=== PATIENT | female | born 1935 | race Caucasian/White ===

== ENCOUNTER 2022-04-30 21:14 | Inpatient (IN) | payer MEDICARE, OTHER ==
[~2022-04-30] VITALS: Ht 157.5 cm; Wt 39.9 kg
--- NOTE | 2022-04-30 21:28 | ED Lower Extremity ---
General Chief Complaint: Trauma-Non Activation Stated Complaint: FALL Source: patient Exam Limitations: no limitations History of Present Illness Date Seen by Provider: Apr 30, 2022 Time Seen by Provider: 21:15 Initial Comments Patient is an 87-year-old female who presents to the emergency department today with a chief complaint of right hip pain. She was walking with a friend across a hotel parking lot, bent to clam picker a bottle of water that was dropped and o verbalanced and went down on her right hip and right elbow. She did not hit her head, no loss of consciousness. She is not on blood thinners, her only medication is lisinopril. She has been recently getting over shingles on her left side. Otherwise no complaints of recent illness or other injury. She denies numbness tingling or weakness to her right lower extremity. She was able to ambulate on it but she said it was extremely painful. Unknown last tetanus shot. All other review of systems reviewed and negative except as stated. Onset: just prior to arrival Severity: moderate Pain/Injury Location: right hip Method of Injury: fell Modifying Factors: Improves With Immobilization; Worse With Movement Allergies and Home Medications Allergies Coded Allergies: No Known Drug Allergies (Unverified , 04/30/22) Patient Home Medication List Home Medication List Reviewed: Yes Review of Systems Constitutional: see HPI EENTM: no symptoms reported Respiratory: no symptoms reported Cardiovascular: no symptoms reported Gastrointestinal: no symptoms reported Genitourinary: no symptoms reported Musculoskeletal: joint pain (right hip) Skin: rash (helaing shingles) All Other Systems Reviewed Negative Unless Noted: Yes Past Tw[place]we[place]-Ielcjr-Tfusgx Hx Patient Social History Tobacco Use?: No Substance use?: No Alcohol Use?: No Physical Exam Vital Signs Vital Signs - First Documented 04/30/22 21:15 Temp 36.6 Pulse 64 Resp 16 B/P (MAP) 125/72 (89) Pulse Ox 99 O2 Delivery Room Air Capillary Refill : Height, Weight, BMI Height: '" Weight: lbs. oz. kg; BMI Method: General Appearance: WD/WN, no apparent distress HEENT: PERRL/EOMI Neck: non-tender, full range of motion, supple, normal inspection Cardiovascular: irregularly irregular, other (2+ radial pulses) Respiratory: lungs clear, normal breath sounds, no respiratory distress, no accessory muscle use Gastrointestinal: normal bowel sounds, non tender, soft Hips: left hip non-tender, left hip normal inspection, left hip normal range of motion, left hip no evidence of injury; right hip limited range of motion, right hip pain Legs: bilateral leg non-tender, bilateral leg normal inspection; left leg normal range of motion; bilateral leg no evidence of injury Knees: bilateral knee non-tender, bilateral knee normal inspection; left knee normal range of motion; bilateral knee no evidence of injury Ankles: bilateral ankle non-tender, bilateral ankle normal inspection, bilateral ankle normal range of motion, bilateral ankle no evidence of injury Feet: bilateral foot non-tender, bilateral foot normal inspection, bilateral foot normal range of motion, bilateral foot no evidence of injury Neurologic/Tendon: normal sensation, normal motor functions Neurologic/Psychiatric: alert, normal mood/affect, oriented x 3 Skin: normal color, warm/dry, other (skin tear 3.5cm right elbow - good ROM right elbow - distal NVI) Progress/Results/Core Measures Results/Orders Lab Results Laboratory Tests Test 04/30/22 21:30 Range/Units White Blood Count 7.9 4.3-11.0 10^3/uL Red Blood Count 3.52 L 3.80-5.11 10^6/uL Hemoglobin 10.5 L 11.5-16.0 g/dL Hematocrit 33 L 35-52 % Mean Corpuscular Volume 92 80-99 fL Mean Corpuscular Hemoglobin 30 25-34 pg Mean Corpuscular Hemoglobin Concent 32 32-36 g/dL Red Cell Distribution Width 13.8 10.0-14.5 % Platelet Count 384 130-400 10^3/uL Mean Platelet Volume 9.2 9.0-12.2 fL Immature Granulocyte % (Auto) 1 % Neutrophils (%) (Auto) 82 H 42-75 % Lymphocytes (%) (Auto) 10 L 12-44 % Monocytes (%) (Auto) 6 0-12 % Eosinophils (%) (Auto) 1 0-10 % Basophils (%) (Auto) 0 0-10 % Neutrophils # (Auto) 6.5 1.8-7.8 10^3/uL Lymphocytes # (Auto) 0.8 L 1.0-4.0 10^3/uL Monocytes # (Auto) 0.5 0.0-1.0 10^3/uL Eosinophils # (Auto) 0.1 0.0-0.3 10^3/uL Basophils # (Auto) 0.0 0.0-0.1 10^3/uL Immature Granulocyte # (Auto) 0.0 0.0-0.1 10^3/uL Prothrombin Time 12.6 12.2-14.7 SEC INR Comment 0.9 0.8-1.4 Activated Partial Thromboplast Time 28 24-35 SEC Sodium Level 143 135-145 MMOL/L Potassium Level 4.0 3.6-5.0 MMOL/L Chloride Level 109 H 98-107 MMOL/L Carbon Dioxide Level 19 L 21-32 MMOL/L Anion Gap 15 H 5-14 MMOL/L Blood Urea Nitrogen 32 H 7-18 MG/DL Creatinine 1.45 H 0.60-1.30 MG/DL Estimat Glomerular Filtration Rate 34 BUN/Creatinine Ratio 22 Glucose Level 119 H 70-105 MG/DL Calcium Level 9.3 8.5-10.1 MG/DL My Orders Orders - ALEXA CORNELIUS MD Ed Iv/Invasive Line Start (04/30/22 21:24) Cbc With Automated Diff (04/30/22 21:24) Basic Metabolic Panel (04/30/22 21:24) Chest 1 View, Ap/Pa Only (04/30/22 21:24) Pelvis With Right Hip 2-3views (04/30/22 21:24) Protime With Inr (04/30/22 21:24) Partial Thromboplastin Time (04/30/22 21:24) Ekg Tracing (04/30/22 21:28) Fentanyl Inj (Sublimaze Injection) (04/30/22 22:00) Ondansetron Injection (Zofran Injectio (04/30/22 22:00) Dipht,Pertuss(Acell),Tet Adult (Boostrix (04/30/22 22:00) Dipht,Pertuss(Acell),Tet Adult (Boostrix (04/30/22 21:52) Medications Given in ED Current Medications Medications Dose Ordered Sig/Mansi Route Start Time Stop Time Status Last Admin Dose Admin Diphtheria/ Tetanus/Acell Pertussis 0.5 ml ONCE ONCE IM 04/30/22 22:00 04/30/22 22:01 DC 04/30/22 21:55 0.5 ML Fentanyl Citrate 50 mcg ONCE ONCE IVP 04/30/22 22:00 04/30/22 22:01 DC 04/30/22 21:54 50 MCG Ondansetron HCl 4 mg ONCE ONCE IVP 04/30/22 22:00 04/30/22 22:01 DC 04/30/22 21:53 4 MG Vital Signs/I&O 04/30/22 21:15 Temp 36.6 Pulse 64 Resp 16 B/P (MAP) 125/72 (89) Pulse Ox 99 O2 Delivery Room Air Progress Progress Note : Time: 22:45 Progress Note Patient found to have an impacted right femoral neck fracture. Case was discussed with Dr. Crowley who recommends n.p.o. after midnight and he would plan to do surgery at around 10 AM tomorrow. I discussed with him her abnormal EKG - multiple PVCs and will do a cardiac consultation as well. Case was discussed with Dr. Kendrick. Accepted by Dr. Malloy. Pain medications are written for. Plan of care discussed with family Initial ECG Impression Date: Apr 30, 2022 Initial ECG Impression Time: 21:35 Initial ECG Rate: 98 Initial ECG Intervals VA 156 QRS 98 QTc 388 Comment underlying Sinus Rhythm with frequent PVC in bigeminal pattern, sometimes trigeminal - no sig ST elevation or depression; incomplete RBBB Diagnostic Imaging Diagonstic Imaging: Xray Comments [facility] [place] [place] NAME: STACY STEELE [facility] REC#: [id number] PT STATUS: REG ER : 1935 PHYSICIAN: ALEXA CORNELIUS MD ADMIT DATE: 04/30/22/ER Signed Date of Exam:04/30/22 PELVIS WITH RIGHT HIP 2-3VIEWS INDICATION: Right hip pain after fall. FINDINGS: There is a subcapital fracture of the right femur. This is minimally displaced. There is no other fracture or dislocation. Left hip appears intact. IMPRESSION: Subcapital fracture of the right femur. Dictated by: Dictated on workstation # [id number] Dict: 04/30/222222 Trans: 04/30/222253 [facility] [id number] Interpreted by: LILIAN LAZCANO MD Electronically signed by: LILIAN LAZCANO MD 04/30/224 Diagonstic Imaging: Xray Comments [facility] [place] [place] NAME: STACY STEELE [facility] REC#: [id number] PT STATUS: REG ER : 1935 PHYSICIAN: ALEXA CORNELIUS MD ADMIT DATE: 04/30/22/ER Signed Date of Exam:04/30/22 CHEST 1 VIEW, AP/PA ONLY INDICATION: Fall with hip pain. FINDINGS: There is cardiomegaly. There is some chronic interstitial scarring. There is no pleural effusion or pneumothorax. The mediastinum is unremarkable. IMPRESSION: 1. Cardiomegaly with some chronic interstitial scarring likely reflecting emphysematous disease and COPD. 2. No other acute cardiopulmonary abnormality. Dictated by: Dictated on workstation # [id number] Dict: 04/30/222221 Trans: 04/30/222253 [facility] [id number] Interpreted by: LILIAN LAZCANO MD Electronically signed by: LILIAN LAZCANO MD 04/30/224 Departure Communication (Admissions) Time/Spoke to Admitting Phy: 22:[address] Malloy Time/Spoke to Consulting Phy: 22:[address] Crowley Impression Primary Impression: Fracture of right hip Qualified Codes: S72.001A - Fracture of unspecified part of neck of right femur, initial encounter for closed fracture Disposition: ADMITTED INPATIENT Condition: Stable Admissions Decision to Admit Reason: Admit from ER (General) Decision to Admit/Date: Apr 30, 2022 Time/Decision to Admit Time: 23:00 Departure-Patient Inst. Referrals: NO,LOCAL PHYSICIAN (PCP/Family) Primary Care Physician ALEXA CORNELIUS MD Apr 30, 2022 21:28
[2022-04-30 21:38] LABS: BASOPHILS % (AUTO) 0 % (0-10); EOSINOPHILS # (AUTO) 0.1 10^3/uL (0.0-0.3); EOSINOPHILS % (AUTO) 1 % (0-10); HEMATOCRIT 33 % (35-52); HEMOGLOBIN 10.5 g/dL (11.5-16.0); LYMPHOCYTES # (AUTO) 0.8 10^3/uL (1.0-4.0); LYMPHOCYTES % (AUTO) 10 % (12-44); MEAN CORPUSCULAR HEMOGLOBIN 30 pg (25-34); MEAN CORPUSCULAR HGB CONC 32 g/dL (32-36); MEAN CORPUSCULAR VOLUME 92 fL (80-99); MEAN PLATELET VOLUME 9.2 fL (9.0-12.2); MONOCYTES # (AUTO) 0.5 10^3/uL (0.0-1.0); MONOCYTES % (AUTO) 6 % (0-12); NEUTROPHILS # (AUTO) 6.5 10^3/uL (1.8-7.8); NEUTROPHILS % (AUTO) 82 % (42-75); PLATELET COUNT 384 10^3/uL (130-400); WHITE BLOOD COUNT 7.9 10^3/uL (4.3-11.0)
[2022-04-30] MEDS ORDERED: TETANUS,DIPTH,PERTUSS P/F (BOOSTRIX) 0.5 ML VIAL IM ONE ×2 (21:52→22:00)
[2022-04-30 21:53] LABS: CALCIUM 9.3 MG/DL (8.5-10.1)
[2022-04-30 21:55] LABS: INR 0.9 (0.8-1.4); PROTHROMBIN TIME PATIENT 12.6 SEC (12.2-14.7)
[2022-04-30 21:57] LABS: CREATININE SERUM 1.45 MG/DL (0.60-1.30)
[2022-04-30] MEDS ORDERED: ONDANSETRON 4 MG/2 ML (SDV) Z0FRAN IVP ONE (22:00)
[2022-04-30] MEDS ORDERED: fentaNYL INJ 100 MCG/2 ML AMP IVP ONE (22:00)
--- NOTE | 2022-04-30 22:25 | Diagnostic Imaging Report ---
INDICATION: Fall with hip pain. FINDINGS: There is cardiomegaly. There is some chronic interstitial scarring. There is no pleural effusion or pneumothorax. The mediastinum is unremarkable. IMPRESSION: 1. Cardiomegaly with some chronic interstitial scarring likely reflecting emphysematous disease and COPD. 2. No other acute cardiopulmonary abnormality. Dictated by: Dictated on workstation # [id number]
--- NOTE | 2022-04-30 22:25 | Diagnostic Imaging Report ---
INDICATION: Right hip pain after fall. FINDINGS: There is a subcapital fracture of the right femur. This is minimally displaced. There is no other fracture or dislocation. Left hip appears intact. IMPRESSION: Subcapital fracture of the right femur. Dictated by: Dictated on workstation # [id number]
[2022-05-01] VITALS (13 sets, daily range): BP systolic 114–202; BP diastolic 58–86
[2022-05-01] MEDS ORDERED: ONDANSETRON 4 MG/2 ML (SDV) Z0FRAN IV PRN (00:30)
[2022-05-01] MEDS ORDERED: RT-ALBUTEROL SULF 2.5 MG/3 ML PRE-MIX VIAL INH PRN (01:00)
[2022-05-01] MEDS: fentaNYL INJ 100 MCG/2 ML AMP IV PRN ×3 (01:01→07:40)
[2022-05-01] MEDS ORDERED: MEPERIDINE (DEMEROL) INJ 50 MG/ML IVP ONE (09:00)
[2022-05-01] MEDS ORDERED: morphine INJ 10 MG/ML 1ML (SYR OR VIAL) IVP ONE (09:00)
[2022-05-01] MEDS ORDERED: ONDANSETRON 4 MG/2 ML (SDV) Z0FRAN IVP PRN ×2 (09:00→09:45)
[2022-05-01] MEDS ORDERED: fentaNYL INJ 100 MCG/2 ML AMP IVP ONE (09:00)
--- NOTE | 2022-05-01 09:03 | Progress Note-Pre Operative ---
Pre-Operative Progress Note H&P Reviewed The H&P was reviewed, patient examined and no changes noted. Date Seen by Provider: May 01, 2022 Time Seen by Provider: :03 Date H&P Reviewed: May 01, 2022 Time H&P Reviewed: 09:03 Pre-Operative Diagnosis: closed, displaced right femoral neck fracture BETH SIMS MD May 01, 2022 09:03
[2022-05-01] MEDS ORDERED: LIDOCAINE PF 2% 5 ML (XYLOCAINE) VIAL ONE (09:04)
[2022-05-01] MEDS ORDERED: MIDAZOLAM 2 MG/2 ML (VERSED) VIAL ONE (09:04)
[2022-05-01] MEDS ORDERED: proPOfol 200 MG/20 ML (DIPRIVAN) VIAL IV ONE (09:04)
[2022-05-01] MEDS ORDERED: ONDANSETRON 4 MG/2 ML (SDV) Z0FRAN ONE (09:04)
[2022-05-01] MEDS ORDERED: fentaNYL INJ 100 MCG/2 ML AMP ONE (09:04)
[2022-05-01] MEDS ORDERED: SEVOFLURANE (ULTANE) 15 ML INHAL SOLN ONE ×2 (09:04→10:15)
--- NOTE | 2022-05-01 09:04 | Progress Note-Post Operative ---
Post-Operative Progess Note Surgeon (s)/Head Teller (s) Surgeon BETH SIMS MD Head Teller: Sachin Solis Pre-Operative Diagnosis closed, displaced right femoral neck fracture Post-Operative Diagnosis closed, displaced right femoral neck fracture Procedure & Operative Findings Date of Procedure 05/01/22 Procedure Performed/Findings right hip bipolar replacement Anesthesia Type GETA Estimated Blood Loss Estimated blood loss (mL): 100ml Specimens/Packing Specimens Removed femoral head Packing: none BETH SIMS MD May 01, 2022 09:04
[2022-05-01] MEDS ORDERED: BUPIVACAINE 0.5% 30 ML (SENSORCAINE) VIAL ONE (09:24)
[2022-05-01] MEDS ORDERED: diphenhydrAMINE 50 MG/ML INJ (BENADRYL) IVP PRN (09:45)
[2022-05-01] MEDS ORDERED: ACETAMINOPHEN 325 MG TABLET PO PRN (09:45)
[2022-05-01] MEDS ORDERED: TEMAZEPAM 15 MG (RESTORIL) CAP PO PRN (09:45)
[2022-05-01] MEDS ORDERED: PHENYLEPHRINE 100 MCG/ML 10 ML (ANESTHESIA) SYR ONE (09:47)
[2022-05-01] MEDS ORDERED: ceFAZolin 2 GM IV Premixed 50 ML IV ONE (10:00)
--- NOTE | 2022-05-01 10:15 | Consultation-Cardiology ---
HPI-Cardiology Cardiology Consultation: Date of Consultation 05/01/22 Time Seen by a Provider: 09:30 Date of Admission Attending Physician Sol,Local Physician Admitting Physician Admitting Physician: Ida Malloy MD Attending Physician: Ida Malloy MD Consulting Physician AYAN ASHLEY MD, MA, FACP, FACC, [facility], [facility]S Physician requesting Cardiology consult: Dr Crowley HPI: Chief Complaint: Reason for Cardiology consult: Pre-op eval 87 yo woman who is visiting this area from [place] who tripped and fell and broke her R hip. She does not report any syncope. She denies any cp or shortness of breath or palp. She does report an irreg heart beat detected by her primary care physician for which she is due to see a propulsion engineer in [place] in May 2022. She does not report swelling or symptoms consistent with orthopnea or paroxysmal nocturnal dyspnea Review of Systems-Cardiology Review of Systems Constitutional: No malaise, No weight loss, No weight gain Eyes: No vision change Ears/Nose/Throat: No ear discharge, No nasal drainage, No recent hearing loss Respiratory: As described under HPI Cardiovascular: As described under HPI Gastrointestinal: No nausea, No vomiting Genitourinary: No dysuria, No hematuria Musculoskeletal: No back pain Skin: No rash, No ulcerations Psychiatric/Neurological: No seizure, No focal weakness, No syncope Hematologic: No bleeding abnormalities All Other Systems Reviewed Negative Unless Noted: Yes RLG-Jjjnbx-Akimrc Hx Patient Social History Smoking Status: Never a Smoker Have you traveled recently?: No Alcohol Use?: No Pt feels they are or have been: No Past Medical History PMH As described under Assessment. Family Medical History Family Medical History: She does not report fam h/o early CAD Allergies and Home Medications Allergies Coded Allergies: No Known Drug Allergies (Unverified , 04/30/22) Patient Home Medication List Home Medication List Reviewed: Yes Physical Exam-Cardiology Physical Exam Vital Signs/I&O 04/30/22 05/01/22 05/01/22 05/01/22 23:44 00:12 00:51 00:59 Temp 36.6 36.6 36.5 Pulse 84 64 75 Resp 16 18 B/P (MAP) 157/60 164/60 (94) Pulse Ox 97 97 99 97 O2 Delivery Room Air Room Air Room Air FiO2 21 7/1005/01/22 05/01/22 05/01/22 04:57 07:53 08:31 09:25 Temp 36.7 37.1 Pulse 66 92 99 Resp 18 18 B/P (MAP) 114/62 (79) 179/80 (113) Pulse Ox 96 95 95 O2 Delivery Room Air Room Air Room Air Capillary Refill : Less Than 3 Seconds Constitutional: AAO x 3, well-developed, other (thin-appearing) HEENT: PERRL, EOMI, hearing is well preserved Neck: No non-tender; carotid pulses are 2 + bilaterally Respiratory: No accessory muscle use; other (fair to good, bilateral air entry) Cardiovascular: regular rate-rhythm, S1 and S2, systolic murmur (soft LORENA at card base) Gastrointestinal: No tender; soft; No guarding, No rebound; audible bowel sounds Extremities: No clubbing, No cyanosis, No significant edema Neurologic/Psychiatric: other (moves all limbs; we did not attempt any motion at the R hip) Skin: warm/dry; No rash on exposed areas, No ulcerations on exposed areas Data Review Labs Laboratory Tests 04/30/22 21:30: White Blood Count 7.9, Red Blood Count 3.52L, Hemoglobin 10.5L, Hematocrit 33L, Mean Corpuscular Volume 92, Mean Corpuscular Hemoglobin 30, Mean Corpuscular Hemoglobin Concent 32, Red Cell Distribution Width 13.8, Platelet Count 384, M bernadette Platelet Volume 9.2, Immature Granulocyte % (Auto) 1, Neutrophils (%) (Auto) 82H, Lymphocytes (%) (Auto) 10L, Monocytes (%) (Auto) 6, Eosinophils (%) (Auto) 1, Basophils (%) (Auto) 0, Neutrophils # (Auto) 6.5, Lymphocytes # (Auto) 0.8L, Monocytes # (Auto) 0.5, Eosinophils # (Auto) 0.1, Basophils # (Auto) 0.0, Immature Granulocyte # (Auto) 0.0, Prothrombin Time 12.6, INR Comment 0.9, Activated Partial Thromboplast Time 28, Sodium Level 143, Potassium Level 4.0, Chloride Level 109H, Carbon Dioxide Level 19L, Anion Gap 15H, Blood Urea Nitrogen 32H, Creatinine 1.45H, Estimat Glomerular Filtration Rate 34, BUN/Creatinine Ratio 22, Glucose Level 119H, Calcium Level 9.3 Laboratory Tests 04/30/22 21:30 A/P-Cardiology Assessment/Admission Diagnosis Frequent ventricular and supraventricular ectopy w/o any VT or SVT Hypertension Frailty and low BMI (16) 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 I discussed with her and her family. They understand the risk. The patient wis hes to proceed with the surgery and discuss this with the surgeon * Continue to treat hypertension * Add aspirin 81 mg daily to regimen when feasible from a surgical standpoint * We also recommend perioperative DVT prophylaxis * Monitor labs AYAN ASHLEY MD FACP FAC CCDS May 01, 2022 10:15
[2022-05-01] MEDS ORDERED: ROCURONIUM 50 MG/5 ML (ZEMURON) VIAL IV ONE (10:16)
[2022-05-01] MEDS ORDERED: SUCCINYLCHOLINE INJ 100 MG/5 ML SYR/VIAL ONE (10:16)
[2022-05-01] MEDS ORDERED: LACTATED RINGERS 1,000 ML IV PRN (11:15)
[2022-05-01] MEDS ORDERED: morphine INJ 10 MG/ML 1ML (SYR OR VIAL) ONE (11:47)
[2022-05-01] MEDS: fentaNYL INJ 100 MCG/2 ML AMP IVP PRN ×2 (13:00→17:49)
[2022-05-01] MEDS: LACTATED RINGERS 1,000 ML IV PRN ×2 (13:00→22:51)
--- NOTE | 2022-05-01 13:14 | Diagnostic Imaging Report ---
HISTORY: Postoperative right hip TECHNIQUE: Single frontal view of the right hip COMPARISON: 04/30/2022 FINDINGS: There is a right hip hemiarthroplasty. There is soft tissue edema and air about the right hip from the recent surgery. No immediate hardware complication is seen. Skin osito are noted laterally. IMPRESSION: 1. Right hip hemiarthroplasty with no immediate hardware complication seen. Dictated by: Dictated on workstation # [id number]
--- NOTE | 2022-05-01 14:42 | History & Physical-Hospitalist ---
History of Present Illness HPI/Chief Complaint Gail Gee is an 87 year old female with PMH HTN who presented after a fall. She lost her balance and fell to the ground on her right side. She was having right sided hip pain. She did not lose consciousness. Upon my exam, she has just returned from surgery and she is very lethargic from medication. Source: RN/MD Exam Limitations: clinical condition Date Seen 05/01/22 Time Seen by a Provider: 13:05 Attending Physician No,Local Physician PCP Admitting Physician: Radha Wood MD Attending Physician: Radha Wood MD Referring Physician Date of Admission Apr 30, 2022 at 22:58 Home Medications & Allergies Home Medications Reviewed patient Home Medication Reconciliation performed by pharmacy medication reconciliations air and hydronic balancing technician and/or nursing. Patients Allergies have been reviewed. Allergies Allergies Coded Allergies No Known Drug Allergies (Unverified04/30/22) Past Mkcvglq-Vqtqmi-Pelbjk Hx Patient Social History Tobacco Use?: No Smoking Status: Never a Smoker Smokeless Tobacco Frequency: Never a User Use of E-Cig and/or Vaping Niraj: Never a User Substance use?: No Alcohol Use?: No Pt feels they are or have been: No Immunizations Up To Date Tetanus Booster (TDap): Unknown Current Status Advance Directives: Yes Advance Directive Location: Home Communicates: Verbally Primary Language: Malian Preferred Spoken Language: Malian Is interpretation needed?: No Implanted or Applied Medical D: None Past Medical History Currently Using CPAP: No Currently Using BIPAP: No Hypertension Family Medical History No Pertinent Family Hx Review of Systems Constitutional: see HPI Physical Exam Physical Exam Vital Signs Vital Signs - First Documented 04/30/22 05/01/22 05/01/22 21:15 00:51 11:31 Temp 36.6 Pulse 64 Resp 16 B/P (MAP) 125/72 (89) Pulse Ox 99 O2 Delivery Room Air O2 Flow Rate 6.00 FiO2 21 Capillary Refill : Less Than 3 Seconds Height, Weight, BMI Height: '" Weight: lbs. oz. kg; 16.08 BMI Method: General Appearance: No Apparent Distress, Thin Respiratory: Lungs Clear, No Respiratory Distress Cardiovascular: Regular Rate, Rhythm, No Murmur Gastrointestinal: Normal Bowel Sounds, Soft Extremity: Normal Inspection, No Pedal Edema Neurologic/Psychiatric: Other (lethargic) Skin: Normal Color, Warm/Dry Results Results/Procedures Labs Laboratory Tests 04/30/22 21:30 Patient resulted labs reviewed. Imaging: Reviewed Imaging Report Assessment/Plan Admission Diagnosis Right hip fracture Admission Status: Inpatient Order (span 2 midnights) Reason for Inpatient Admission: Hip surgery Assessment and Plan Closed right hip fracture Ground level fall Advanced age Low BMI XR with right hip fracture Orthopedic surgery, Dr. Crowley, consulted s/p surgical repair 05/01 Pain regimen Bowel regimen Incentive spirometry PT/OT Monitor hemoglobin QUINTIN vs CKD Monitor creatinine HTN Hold home meds DVT prophylaxis: Lovenox Diagnosis/Problems Diagnosis/Problems (1) Fracture of right hip Qualifiers: Encounter type: initial encounter Fracture type: closed Qualified Codes: S72.001A - Fracture of unspecified part of neck of right femur, initial encounter for closed fracture (2) Fall from ground level Status: Acute (3) Advanced age Status: Chronic (4) Low BMI Status: Chronic (5) HTN (hypertension) Status: Chronic (6) CKD (chronic kidney disease) Status: Chronic RADHA WOOD MD May 01, 2022 14:42
--- NOTE | 2022-05-01 15:05 | CONSULTATION REPORT ---
DATE OF SERVICE: 05/01/2022 REASON FOR CONSULTATION: Right femoral neck fracture. HISTORY OF PRESENT ILLNESS: The patient is an 87-year-old female, who fell last evening. She bent over to filler picker a bottle of water and lost her balance and fell onto her right hip and elbow. There was no loss of consciousness. Ultimately, radiographs revealed a displaced right femoral neck fracture. She denies antecedent pain. Currently, she reports hip pain, but denies any other pain. REVIEW OF SYSTEMS: No recent chest pain, shortness of breath or dysuria. ALLERGIES: NO KNOWN DRUG ALLERGIES. MEDICATIONS: Lisinopril. PHYSICAL EXAMINATION: The right lower extremity demonstrates mild ecchymosis on the lateral aspect of the right hip. She has intact dorsiflexion and plantarflexion of the toes. Sensation is intact throughout her right lower extremity to light touch. Pulses are symmetric. Radiographs reveal displaced right femoral neck fracture. PLAN: Right hip bipolar replacement. The risks, benefits, options, ramifications and recovery were discussed at length with the patient and her sons. They understand and wished to proceed. Job ID: [id number] DocumentID: [id number] Dictated Date: 05/01/2022 09:06:26 Workday Director Date: 05/01/2022 15:04:38 Dictated By: BETH SIMS MD
[2022-05-01] MEDS ORDERED: CEFUROXIME 750 MG/7.5 ML (ZINACEF) VIAL ONE (17:36)
[2022-05-01] MEDS: CEFUROXIME INJECTION 750 MG in NS (IVPB) 50 ML IV SCH (17:38)
--- NOTE | 2022-05-01 20:10 | OPERATIVE REPORT ---
DATE OF SERVICE: 05/01/2022 PREOPERATIVE DIAGNOSIS: Displaced right femoral neck fracture POSTOPERATIVE DIAGNOSIS: Displaced right femoral neck fracture. PROCEDURE: Right hip bipolar replacement. SURGEON: Festus Sims MD FABRICATION AND LAYOUT CRAFTSMAN: Sachin Solis, who assisted throughout the procedure and closed the incision. ANESTHESIA: General endotracheal by Sachin Albert CRNA. ESTIMATED BLOOD LOSS: 100 mL. DRAINS: None. COMPLICATIONS: None. POSTOPERATIVE PLAN: Routine hip precautions with weightbearing as tolerated. The patient was transferred to the recovery room awake and in stable condition. MATERIALS: Depuy/Synthes pressfit size 3 stem, standard neck and 43 liner with two 1.7 cables. STATEMENT OF MEDICAL NECESSITY: The patient is an 87-year-old female who was visiting for a family reunion when she fell and was found to have a displaced right subcapital femoral neck fracture. The patient and family were counseled regarding treatment options and elected to proceed with surgical intervention. DESCRIPTION OF PROCEDURE: After risks and benefits of procedure were discussed and questions were answered, an informed consent was signed and placed on chart. The operative site was confirmed in the preoperative holding area initialed by the surgeon. The patient was then transferred to the operating room and after adequate levels of general endotracheal anesthetic were obtained, a timeout was called, confirming the operative site. The patient was then carefully placed in the left lateral decubitus position. The right hip and lower extremity were prepped and draped in the usual sterile fashion. Standard anterolateral approach was utilized. The iliotibial band was incised in line with the incision. The abductor tendon was released, leaving a 2 cm cuff for later reattachment. Hip capsulotomy was performed. The fracture site was identified and using the cutting guide the cut was made. The femoral head was removed without difficulty. It was sized to a size 43. The acetabulum was copiously irrigated. No loose bodies were noted. Mild wear was noted without significant degenerative changes. It was noted that there was a cortical fragment on the superficial aspect of the calcar. This was not full thickness into the canal, but due to her bone quality, it was elected to place cables for support. Two 1.7 mm cables were then placed and partially tensioned prior to preparing the canal. The canal was then prepared with a box chisel followed by the T-handle reamer and sequential broaches up to a size 3. The 3-broach provided excellent proximal fill. This was then trialled with a 43 liner and standard head/neck. The hip was reduced after inspecting for loose bodies. The hip was taken through range of motion and was found to be stable with no impingement noted and no instability noted in any plane. The trials were then removed. The joint and canal were then copiously irrigated, and the femoral prosthesis was press fit in 15 degrees of anteversion. The cables were then retensioned to 40. The acetabulum was then copiously irrigated once more inspected for any loose bodies. The neck was then cleaned and the head liner construct was placed. The hip was then reduced and taken through range of motion. No impingement was noted. Full range of motion was noted, and no instability was noted in any plane. The calcar demonstrated no full thickness split and the cables were well seated. Because of this, the patient can weightbear as tolerated. The joint was further irrigated with pulse lavage. The capsule and abductor were reapproximated with #5 Tevdek in jvbbce-bb-zieqk interrupted fashion. The wound was further irrigated with pulse lavage. The iliotibial band was closed in a running fashion with #1 Vicryl. Subcutaneous tissues were irrigated using a total of 6 liters throughout the procedure. A 2-0 Vicryl was used to reapproximate subcutaneous tissue, osito used on the skin. Incision was infiltrated with plain Marcaine. A soft dressing was applied, and the patient was transferred to the recovery room awake and in stable condition. Job ID: [id number] DocumentID: [id number] Dictated Date: 05/01/2022 11:29:15 [employer] Consultant Date: 05/01/2022 20:09:24 Dictated By: FESTUS SIMS MD
[2022-05-01] MEDS: SENNOSIDES 8.6 MG (SENOKOT) TAB PO SCH (21:24)
[2022-05-02] VITALS (7 sets, daily range): BP systolic 143–181; BP diastolic 52–77
[2022-05-02] MEDS: fentaNYL INJ 100 MCG/2 ML AMP IVP PRN ×2 (00:22→06:00)
[2022-05-02] MEDS ORDERED: NS (IVPB) 50 ML ONE (01:38)
[2022-05-02] MEDS ORDERED: CEFUROXIME 750 MG/7.5 ML (ZINACEF) VIAL ONE (01:38)
[2022-05-02] MEDS: CEFUROXIME INJECTION 750 MG in NS (IVPB) 50 ML IV SCH (01:41)
[2022-05-02] MEDS: MULTIVIT W/MINERALS TAB (THERAGRAN M) PO SCH (06:00)
[2022-05-02 06:04] LABS: HEMOGLOBIN 9.1 g/dL (11.5-16.0)
[2022-05-02 06:18] LABS: POTASSIUM 4.2 MMOL/L (3.6-5.0)
[2022-05-02 06:19] LABS: CALCIUM 8.3 MG/DL (8.5-10.1)
[2022-05-02 06:24] LABS: CREATININE SERUM 0.95 MG/DL (0.60-1.30)
--- NOTE | 2022-05-02 07:59 | Progress Note ---
Standard Progress Note Progress Notes/Assess & Plan Date Seen by a Provider: May 02, 2022 Time Seen by a Provider: 07:57 Progress/Assessment & Plan no complaints denies paresthesias radiographs--HW well positioned without fracture RLE--intact DF and PF of toes and ankle. pulses equal with brisk cap refill sensation intact to light touch throughout s/p R hip bipolar IRU eval PT/OT BETH SIMS MD May 02, 2022 07:59
[2022-05-02] MEDS: ENOXAPARIN INJECTION 30 MG/0.3 ML SYR SC SCH (09:08)
[2022-05-02] MEDS: SENNOSIDES 8.6 MG (SENOKOT) TAB PO SCH ×2 (09:08→19:38)
--- NOTE | 2022-05-02 09:47 | Physical Therapy Evaluation ---
PT Evaluation-General Medical Diagnosis Admission Date Apr 30, 2022 at 22:58 Medical Diagnosis: right hip fracture Onset Date: Apr 30, 2022 Therapy Diagnosis Therapy Diagnosis: debility/weakness Precautions Precautions/Isolations: Fall Prevention, Standard Precautions Weight Bear Status Right Lower Extremity: Right Weight Bearing/Tolerated Left Lower Extremity: Left Full Weight Bearing Referral Physician: Keo Reason for Referral: Evaluation/Treatment Medical History Pertinent Medical History: HTN Current History ER secondary to fall while reaching down to picker feeder a bottle of water on the ground Reviewed History: Yes Social History Home: Single Level Current Living Status: Alone Prior Prior Level of Function SCALE: Activities may be completed with or without assistive devices. 0-Fgbwfjmuxb-kdunqpo completes the activity by him/herself with no assistance from a helper. 5-Set-up or Clean-up Assistance-helper sets up or cleans up; patient completes a ctivity. [place] assists only prior to or following the activity. 4-Supervision or Touching Assistance-helper provides verbal cues and/or touching/steadying and/or contact guard assistance as patient completes activity. Assistance may be provided throughout the activity or intermittently. 3-Partial/Moderate Assistance-helper does LESS THAN HALF the effort. [place] lifts, holds or supports trunk or limbs, but provides less than half the effort. 2-Substantial/Maximal Assistance-helper does MORE THAN HALF the effort. [place] lifts or holds trunk or limbs and provides more than half the effort. 6-Htczewgpz-sseamr does ALL the effort. Patient does none of the effort to complete the activity. Or, the assistance of 2 or more helpers is required for the patient to complete the activity. If activity was not attempted, code reason: 7-Patient Refused. 9-Not Applicable-not attempted and the patient did not perform the activity before the current illness, exacerbation or injury. 10-Not Attempted due to Environmental Limitations-(lack of equipment, weather restraints, etc.). 88-Not Attempted due to Medical Conditions or Safety Concerns. Bed Mobility: 6 Transfers (B,C,W/C): 6 Gait: 6 Stairs: 6 Indoor Mobility (Ambulation): Independent Stairs: Independent Prior Devices Use: None golfs 3 days/week PT Evaluation-Current Subjective Patient agrees to PT. Pain Numeric Pain Scale: 5-Moderate Pain Location: Right Location Body Site: Hip Pain Description: Acute Objective Patient Orientation: Normal For Age Attachments: Tiwari Catheter, IV ROM/Strength ROM Lower Extremities bilateral LE WFL (right hip precautions) Strength Lower Extremities left LE 4/5 grossly/right LE 3/5 grossly Integumentary/Posture Integumentary refer to nursing notes Bowel Incontinence: No Bladder Incontinence: Tiwari Cath Posture WFL Neuromuscular (Tone, Coordination, Reflexes) grossly intact Sensory Vision: Functional Hearing: Functional Sensation Right Lower Extremit: Intact Sensation Left Lower Extremity: Intact Transfers Lying to Sitting/Side of Bed(Q: 3 Sit to Stand (QC): 3 Chair/Ejo-bl-Xcbdi Xfer(QC): 3 Gait Does the Patient Walk?: Yes Mode of Locomotion: Walk Anticipated Mode of Locomotion: Walk Walk 10 feet (QC): 3 Walk 50 ft with 2 Turns(QC): 88 Walk 150 ft (QC): 88 Distance: 15' Gait Assistive Device: FWW Comments/Gait Description slow and antalgic Balance Sitting Static: Normal Sitting Dynamic: Normal Standing Static: Fair Standing Dynamic: Fair Assessment/Needs 87 y.o., very active female, will benefit from skilled PT to address functional strength and mobility to safely travel to home in [place]. From a PT standpoint, patient would benefit from IRU stay to ensure appropriate rehab recovery potential. Rehab Potential: Good PT Assisted Goals Bell[place] Goals PT Bellmaker Goals Time Frame: May 14, 2022 Roll Left & Right (QC): 6 Sit to Lying (QC): 6 Lying-Sitting on Side/Bed(QC): 6 Sit to Stand (QC): 6 Chair/Mlr-wl-Brtzr Xfer(QC): 6 Toilet Transfer (QC): 6 Walk 10 feet (QC): 6 Walk 50ft with 2 Turns (QC): 6 Walk 150 ft (QC): 6 1 Step (curb) (QC): 4 4 Steps (QC): 4 PT Plan Problem List Problem List: Activity Tolerance, Functional Strength, Gait, Transfer, Bed Mo bility Treatment/Plan Treatment Plan: Continue Plan of Care Treatment Plan: Bed Mobility, Education, Functional Activity [place], Functional Strength, Gait, Safety, Therapeutic Exercise, Transfers Treatment Duration: May 14, 2022 Frequency: 11 times per week Estimated Hrs Per Day: .5 hour per day Patient and/or Family Agrees t: Yes Time/GCodes Time In: 750 Time Out: 808 Total Billed Treatment Time: 18 [facility] REY [facility] May 02, 2022 09:47
[2022-05-02] MEDS ORDERED: LISI20TA26 PO (09:52)
[2022-05-02] MEDS ORDERED: ACET-3075 PO (09:55)
[2022-05-02] MEDS ORDERED: MULT-974 PO (09:56)
[2022-05-02] MEDS ORDERED: ACET-2267 PO (09:56)
[2022-05-02] MEDS ORDERED: ASCO-262 PO (09:57)
[2022-05-02] MEDS ORDERED: CHOL-34 PO (09:57)
[2022-05-02] MEDS ORDERED: VITA100033 PO (09:58)
[2022-05-02] MEDS: HYDROcodone/APAP 5 MG/325 MG (LORTAB) TAB PO PRN ×3 (11:02→20:25)
--- NOTE | 2022-05-02 12:06 | Occupational Therapy Eval ---
OT Evaluation-General/PLF Medical Diagnosis Admission Date Apr 30, 2022 at 22:58 Medical Diagnosis: right hip fracture Onset Date: Apr 30, 2022 Therapy Diagnosis Therapy Diagnosis: decreased ADL status and weakness Precautions Precautions/Isolations: Fall Prevention, Standard Precautions Comments Hip Precautions RLE Referral Physician: Keo Referral Reason: Evaluation/Treatment Medical History Pertinent Medical History: HTN Additional Medical History HTN Current History R hip fracture as a result of losing balance and falling, s/p bipolar hip replacement 05/01/22 Social History Home: Single Level Current Living Status: Alone ADL-Prior Level of Function SCALE: Activities may be completed with or without assistive devices. 0-Sehbwjjxtm-dtwejvp completes the activity by him/herself with no assistance from a helper. 5-Set-up or Clean-up Assistance-helper sets up or cleans up; patient completes activity. [place] assists only prior to or following the activity. 4-Supervision or Touching Assistance-helper provides verbal cues and/or touching/steadying and/or contact guard assistance as patient completes activity. Assistance may be provided throughout the activity or intermittently. 3-Partial/Moderate Assistance-helper does LESS THAN HALF the effort. [place] lifts, holds or supports trunk or limbs, but provides less than half the effort. 2-Substantial/Maximal Assistance-helper does MORE THAN HALF the effort. [place] lifts or holds trunk or limbs and provides more than half the effort. 1-Cgxxbkhpw-lcnafz does ALL the effort. Patient does none of the effort to complete the activity. Or, the assistance of 2 or more helpers is required for the patient to complete the activity. If activity was not attempted, code reason: 7-Patient Refused. 9-Not Applicable-not attempted and the patient did not perform the activity before the current illness, exacerbation or injury. 10-Not Attempted due to Environmental Limitations-(lack of equipment, weather restraints, etc.). 88-Not Attempted due to Medical Conditions or Safety Concerns. ADL PLOF Comments Pt reports being IND in all ADLs at [facility]. She does not use any DME or AD, and she is very active. She is originally from [place], but was in town for a family reunion when she fell and broke her hip. Self Care: Independent Functional Cognition: Independent DME/Equipment: Bath Bench (built into shower), Grab Bars, Shower (walk in), Shower Hose Inter Fold Roll Cutter Drive Self: Yes Leisure Interests: golfing OT Current Status Subjective Pt laying in bed upon OT arrival, agreeable to eval/tx. Pt rates her pain at 6- 7/10 and requested to take pain pill, nurse notified. Mental Status/Objective Patient Orientation: Person, Place, Situation Attachments: IV Current Upper Extremity ROM Not formally tested but observed to be WFL ADL-Treatment Eating (QC): 6 Oral Hygiene (QC): 5 (at bed level) Lower Body Dressing (QC): 2 (Max A per clinical judgment due to hip precautions) On/Off Footwear (QC): 1 (Total assist per clinical judgment due to hip precautions.) Other Treatments Pt remained in bed throughout duration of tx. She provided information about PLOF and living conditions. She was able to recall 1/3 hip precautions, so OT r eviewed the all three precautions, pt verbalized understanding. She was educated on the purpose and benefits of skilled OT services, pt educated on AE to assist with LBD and footwear. Pt would benefit from further education on AE, including trial with LBD/footwear using tools. Pt declined any ADLs at this time. Post tx, pt left in bed with call light in reach and all needs met. Education OT Patient Education: Correct positioning, Energy conservation, Exercise program, Modified ADL techniques, Progress toward Goal/Update tx plan, Purpose of tx/functional activities, Reviewed precautions, Rehab process, Safety issues, Use of adapted equipment Teaching Recipient: Patient Teaching Methods: Discussion Response to Teaching: Verbalize Understanding OT Group Home Goals Pediatric Assistant Goals Time Frame: May 27, 2022 Toileting Hygiene (QC): 6 Shower/Bathe Self (QC): 5 Lower Body Dressing (QC): 6 On/Off Footwear (QC): 6 Additional Goals: 1-Demonstrate ADL Tasks, 2-Verbalize Understanding, 3- ImproveStrength/[place] 1=Demonstrate adherence to instructed precautions during ADL tasks. 2=Patient will verbalize/demonstrate understanding of assistive devices/mod ifications for ADL. 3=Patient will improve strength/tolerance for activity to enable patient to perform ADL's. OT Education/Plan Problem List/Assessment Assessment: Decreased Activ Tolerance, Impaired Funct Balance, Impaired Self- Care Skills Discharge Recommendations Plan/Recommendations: Continue POC Equpiment Recommendations-D/C: Hip Kit Treatment Plan/Plan of Care Patient would benefit from OT for education, treatment and training to promote independence in ADL's, mobility, safety and/or upper extremity function for ADL's. Plan of Care: ADL Retraining, Functional Mobility, UE Funct Exercise/Act Treatment Duration: May 27, 2022 Frequency: 3 times per week (3-5x/wk) Estimated Hrs Per Day: .25 hour per day Rehab Potential: Good Time/GCodes Start Time: 10:45 Stop Time: 10:55 Total Time Billed (hr/min): 10 Billed Treatment Time 1, JACKLYN ALEGRE OT May 02, 2022 12:06
--- NOTE | 2022-05-02 13:09 | Progress Note - Hospitalist ---
Subjective HPI/CC On Admission Date Seen by Provider: May 02, 2022 Gail Gee is an 87 year old female with PMH HTN who presented after a fall. She lost her balance and fell to the ground on her right side. She was having right sided hip pain. She did not lose consciousness. Upon my exam, she has just returned from surgery and she is very lethargic from medication. Subjective/Events-last exam Pt reports doing well. Pain controlled. Was up with PT already and transferred to the chair. Objective Exam Vital Signs Vital Signs Date Time Temp Pulse Resp B/P (MAP) Pulse Ox O2 Delivery O2 Flow Rate FiO2 05/02/22 11:53 37.0 92 19 143/67 (92) 91 Room Air 05/02/22 08:08 1.00 05/01/22 00:51 21 Capillary Refill : Less Than 3 Seconds General Appearance: No Apparent Distress, Thin Respiratory: Lungs Clear, No Respiratory Distress Cardiovascular: Regular Rate, Rhythm, No Murmur Neurologic/Psychiatric: Alert, Oriented x3 Results/Procedures Lab Laboratory Tests 05/02/22 05:46 Patient resulted labs reviewed. Imaging: Reviewed Imaging Report Assessment/Plan Assessment and Plan Assess & Plan/Chief Complaint Closed right hip fracture Ground level fall Advanced age Low BMI XR with right hip fracture Orthopedic surgery, Dr. Crowley, consulted s/p surgical repair 05/01 Pain regimen- added hydrocodone Bowel regimen Incentive spirometry PT/OT- IRF eval placed Monitor hemoglobin QUINTIN resolved HTN Resume home meds DVT prophylaxis: QUENTIN Jacobsen MD May 02, 2022 13:09
--- NOTE | 2022-05-02 13:15 | Progress Note - Cardiology ---
Cardiology SOAP Progress Note Subjective: Sitting up in bed States other than some hip pain she feels well overall No c/o CP or SOB or palpitations Objective: I&O/Vital Signs 05/03/22 05/03/22 05/03/22 05/03/22 01:00 04:59 07:00 07:50 Temp 37.1 36.9 Pulse 70 98 84 74 Resp 20 16 B/P (MAP) 152/64 (93) 158/70 (99) Pulse Ox 93 94 O2 Delivery Room Air Room Air 05/03/22 05/03/22 08:00 11:29 Temp 36.8 Pulse 85 Resp 18 B/P (MAP) 146/67 (93) Pulse Ox 95 O2 Delivery Room Air Room Air 05/03/22 00:00 Intake Total 1410 ml Output Total 495 ml Balance 915 ml Constitutional: AAO x 3, well-developed, other (thin-appearing) Respiratory: No accessory muscle use; other (fair to good, bilateral air entry) Cardiovascular: regular rate-rhythm, S1 and S2, systolic murmur (soft LORENA at card base) Gastrointestional: No tender; soft; No guarding, No rebound; audible bowel sounds Extremities: No clubbing, No cyanosis, No significant edema Neurologic/Psychiatric: other (moves all limbs; we did not attempt any motion at the R hip) Skin: warm/dry; No rash on exposed areas, No ulcerations on exposed areas Results/Procedures: Labs Laboratory Tests 05/03/22 05:27: White Blood Count 9.1, Red Blood Count 2.96L, Hemoglobin 9.0L, Hematocrit 28L, Mean Corpuscular Volume 93, Mean Corpuscular Hemoglobin 30, Mean Corpuscular Hemoglobin Concent 33, Red Cell Distribution Width 13.6, Platelet Count 278, Mean Platelet Volume 9.9, Immature Granulocyte % (Auto) 1, Neutrophils (%) (Auto) 86H, Lymphocytes (%) (Auto) 4L, Monocytes (%) (Auto) 8, Eosinophils (%) (Auto) 1, Basophils (%) (Auto) 0, Neutrophils # (Auto) 7.9H, Lymphocytes # (Auto) 0.4L, Monocytes # (Auto) 0.7, Eosinophils # (Auto) 0.1, Basophils # (Auto) 0.0, Immature Granulocyte # (Auto) 0.1, Sodium Level 136, Potassium Level 4.2, Chloride Level 105, Carbon Dioxide Level 20L, Anion Gap 11, Blood Urea Nitrogen 20H, Creatinine 1.02, Estimat Glomerular Filtration Rate 53, BUN/Creatinine Ratio 20, Glucose Level 110H, Calcium Level 8.4L, Corrected Calcium 9.0, Total Bilirubin 0.4, Aspartate Amino Transf (AST/SGOT) 50H, Alanine Aminotransferase (ALT/SGPT) 44, Alkaline Phosphatase 72, Total Protein 5.5L, Albumin 3.3 Microbiology 05/01/22 MRSA Screen - Final, Complete MRSA not isolated A/P: Assessment: S/P right hip fracture repair on 05-01-[address] 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
--- NOTE | 2022-05-02 14:06 | Physical Therapy Daily Note ---
PT Daily Note-Current Subjective Patient agrees to PT. Pain Numeric Pain Scale: 5-Moderate Pain Location: Right Location Body Site: Hip Pain Description: Acute Mental Status Patient Orientation: Normal For Age Transfers SCALE: Activities may be completed with or without assistive devices. 1-Jbnnbthvve-zurwucc completes the activity by him/herself with no assistance from a helper. 5-Set-up or Clean-up Assistance-helper sets up or cleans up; patient completes activity. [place] assists only prior to or following the activity. 4-Supervision or Touching Assistance-helper provides verbal cues and/or touching/steadying and/or contact guard assistance as patient completes activity. Assistance may be provided throughout the activity or intermittently. 3-Partial/Moderate Assistance-helper does LESS THAN HALF the effort. [place] lifts, holds or supports trunk or limbs, but provides less than half the effort. 2-Substantial/Maximal Assistance-helper does MORE THAN HALF the effort. [place] lifts or holds trunk or limbs and provides more than half the effort. 2-Xallglbrc-qiimeu does ALL the effort. Patient does none of the effort to complete the activity. Or, the assistance of 2 or more helpers is required for the patient to complete the activity. If activity was not attempted, code reason: 7-Patient Refused. 9-Not Applicable-not attempted and the patient did not perform the activity before the current illness, exacerbation or injury. 10-Not Attempted due to Environmental Limitations-(lack of equipment, weather restraints, etc.). 88-Not Attempted due to Medical Conditions or Safety Concerns. Sit to Lying (QC): 3 Lying to Sitting/Side of Bed(Q: 3 Sit to Stand (QC): 3 Weight Bearing Right Lower Extremity: Right Weight Bearing/Tolerated Left Lower Extremity: Left Full Weight Bearing Gait Training Distance: 200' Walk 10 feet (QC): 4 Walk 50 ft with 2 Turns(QC): 4 Walk 150 ft (QC): 4 Gait Assistive Device: FWW slow, antalgic, reciprocal pattern Exercises Supine Ex: Ankle pumps, Quad Set, Heel Slides Supine Reps: 12 Assessment Patient tolerated treatment well and returned to bed with needs met. Improved gait pattern and distance. Increase activity as tolerated by patient. PT Half-Way Goals Can Closing Machine Tender Goals PT Half-Way Goals Time Frame: May 14, 2022 Roll Left & Right (QC): 6 Sit to Lying (QC): 6 Lying-Sitting on Side/Bed(QC): 6 Sit to Stand (QC): 6 Chair/Wmt-se-Ydkpo Xfer(QC): 6 Toilet Transfer (QC): 6 Walk 10 feet (QC): 6 Walk 50ft with 2 Turns (QC): 6 Walk 150 ft (QC): 6 1 Step (curb) (QC): 4 4 Steps (QC): 4 PT Plan Treatment/Plan Treatment Plan: Continue Plan of Care Treatment Plan: Bed Mobility, Education, Functional Activity [place], Functional Strength, Gait, Safety, Therapeutic Exercise, Transfers Treatment Duration: May 14, 2022 Frequency: 11 times per week Estimated Hrs Per Day: .5 hour per day Patient and/or Family Agrees t: Yes Time/GCodes Time In: 1338 Time Out: 1349 Total Billed Treatment Time: 11 Total Billed Treatment 1 visit GT 11 min REY REESE PT May 02, 2022 14:06
--- NOTE | 2022-05-02 18:56 | Progress Note - Cardiology ---
Cardiology SOAP Progress Note Subjective: No cp or palp or syncope or shortness of breath at rest Some gen malaise and weakness No n/v/d Objective: I&O/Vital Signs 05/02/22 05/02/22 05/02/22 05/02/22 07:00 08:00 08:08 11:53 Temp 36.7 37.0 Pulse 82 88 92 Resp 20 19 B/P (MAP) 173/70 (104) 143/67 (92) Pulse Ox 96 91 O2 Delivery Room Air Nasal Cannula Room Air O2 Flow Rate 1.00 05/02/22 05/02/22 13:00 15:36 Temp 37.8 Pulse 100 95 Resp 18 B/P (MAP) 172/77 (108) Pulse Ox 93 O2 Delivery Room Air 05/02/22 00:00 Intake Total 1200 ml Output Total 1025 ml Balance 175 ml Constitutional: AAO x 3, well-developed, other (thin-appearing) Respiratory: No accessory muscle use; other (fair to good, bilateral air entry) Cardiovascular: regular rate-rhythm, S1 and S2, systolic murmur (soft LORENA at card base) Gastrointestional: No tender; soft; No guarding, No rebound; audible bowel sounds Extremities: No clubbing, No cyanosis, No significant edema Neurologic/Psychiatric: other (moves all limbs; we did not attempt any motion at the R hip) Skin: warm/dry; No rash on exposed areas, No ulcerations on exposed areas Results/Procedures: Labs Laboratory Tests 05/02/22 05:46: Hemoglobin 9.1L, Hematocrit 28L, Sodium Level 139, Potassium Level 4.2, Chloride Level 109H, Carbon Dioxide Level 19L, Anion Gap 11, Blood Urea Nitrogen 17, Creatinine 0.95, Estimat Glomerular Filtration Rate 57, BUN/Creatinine Ratio 18, Glucose Level 116H, Calcium Level 8.3L Microbiology 05/01/22 MRSA Screen - Final, Complete MRSA not isolated Laboratory Tests 04/30/22 21:30 05/02/22 05:46 A/P: Assessment: S/P right hip fracture repair on 05-01-[address] Crowley Frequent ventricular and supraventricular ectopy w/o any VT or SVT Hypertension Frailty and low BMI (16) Renal insufficiency: improved Mild anemia of undetermined etiology Age 87 Plan: * Add BB to regimen * Continue to treat hypertension * Add aspirin 81 mg daily to regimen when feasible from a surgical standpoint * Continue DVT prophylaxis * Monitor labs AYAN ASHLEY MD [facility] May 02, 2022 18:56
[2022-05-02] MEDS: lisINopril 20 MG (PRINIVIL) TABLET PO SCH (19:38)
[2022-05-03 04:59] VITALS: BP 152/64
[2022-05-03] MEDS: MULTIVIT W/MINERALS TAB (THERAGRAN M) PO SCH ×2 (05:07)
[2022-05-03] MEDS: HYDROcodone/APAP 5 MG/325 MG (LORTAB) TAB PO PRN ×3 (05:07→20:09)
[2022-05-03 05:42] LABS: HEMOGLOBIN 8.9 g/dL (11.5-16.0)
[2022-05-03 06:57] LABS: BASOPHILS % (AUTO) 0 % (0-10); EOSINOPHILS # (AUTO) 0.1 10^3/uL (0.0-0.3); EOSINOPHILS % (AUTO) 1 % (0-10); HEMATOCRIT 28 % (35-52); LYMPHOCYTES # (AUTO) 0.4 10^3/uL (1.0-4.0); LYMPHOCYTES % (AUTO) 4 % (12-44); MEAN CORPUSCULAR HEMOGLOBIN 30 pg (25-34); MEAN CORPUSCULAR HGB CONC 33 g/dL (32-36); MEAN CORPUSCULAR VOLUME 93 fL (80-99); MEAN PLATELET VOLUME 9.9 fL (9.0-12.2); MONOCYTES # (AUTO) 0.7 10^3/uL (0.0-1.0); MONOCYTES % (AUTO) 8 % (0-12); NEUTROPHILS # (AUTO) 7.9 10^3/uL (1.8-7.8); NEUTROPHILS % (AUTO) 86 % (42-75); PLATELET COUNT 278 10^3/uL (130-400); WHITE BLOOD COUNT 9.1 10^3/uL (4.3-11.0)
[2022-05-03 07:00] LABS: ALBUMIN 3.3 GM/DL (3.2-4.5)
[2022-05-03 07:01] LABS: POTASSIUM 4.2 MMOL/L (3.6-5.0)
[2022-05-03 07:02] LABS: CALCIUM 8.4 MG/DL (8.5-10.1)
--- NOTE | 2022-05-03 07:02 | Progress Note ---
Standard Progress Note Progress Notes/Assess & Plan Date Seen by a Provider: May 03, 2022 Time Seen by a Provider: 07:01 Progress/Assessment & Plan no complaints denies paresthesias radiographs--HW well positioned without fracture RLE--intact DF and PF of toes and ankle. pulses equal with brisk cap refill sensation intact to light touch throughout s/p R hip bipolar IRU eval PT/OT Final Diagnosis no complaints Vital Signs Date Time Temp Pulse Resp B/P (MAP) Pulse Ox O2 Delivery O2 Flow Rate FiO2 05/03/22 04:59 37.1 98 20 152/64 (93) 93 Room Air 05/03/22 01:00 70 05/02/22 23:23 36.5 78 18 153/63 (93) 93 Room Air 05/02/22 20:25 37.1 05/02/22 19:45 Room Air 05/02/22 19:38 38.0 05/02/22 19:20 38.1 100 16 181/72 (108) 93 Room Air 05/02/22 19:00 104 05/02/22 15:36 37.8 95 18 172/77 (108) 93 Room Air 05/02/22 13:00 100 05/02/22 11:53 37.0 92 19 143/67 (92) 91 Room Air 05/02/22 08:08 36.7 88 20 173/70 (104) 96 Nasal Cannula 1.00 05/02/22 08:00 Room Air I & O 05/03/22 07:00 Intake Total 1510 ml Output Total 595 ml Balance 915 ml Laboratory Tests Test 05/03/22 05:27 Range/Units White Blood Count 9.1 4.3-11.0 10^3/uL Red Blood Count 2.96 L 3.80-5.11 10^6/uL Hemoglobin 9.0 L 11.5-16.0 g/dL Hematocrit 28 L 35-52 % Mean Corpuscular Volume 93 80-99 fL Mean Corpuscular Hemoglobin 30 25-34 pg Mean Corpuscular Hemoglobin Concent 33 32-36 g/dL Red Cell Distribution Width 13.6 10.0-14.5 % Platelet Count 278 130-400 10^3/uL Mean Platelet Volume 9.9 9.0-12.2 fL Immature Granulocyte % (Auto) 1 % Neutrophils (%) (Auto) 86 H 42-75 % Lymphocytes (%) (Auto) 4 L 12-44 % Monocytes (%) (Auto) 8 0-12 % Eosinophils (%) (Auto) 1 0-10 % Basophils (%) (Auto) 0 0-10 % Neutrophils # (Auto) 7.9 H 1.8-7.8 10^3/uL Lymphocytes # (Auto) 0.4 L 1.0-4.0 10^3/uL Monocytes # (Auto) 0.7 0.0-1.0 10^3/uL Eosinophils # (Auto) 0.1 0.0-0.3 10^3/uL Basophils # (Auto) 0.0 0.0-0.1 10^3/uL Immature Granulocyte # (Auto) 0.1 0.0-0.1 10^3/uL Sodium Level 136 135-145 MMOL/L Potassium Level 4.2 3.6-5.0 MMOL/L Chloride Level 105 98-107 MMOL/L Albumin 3.3 3.2-4.5 GM/DL R hip incision clean and dry. No calf tenderness. Neg Bailey's s/p R hip bipolar IRU continue PT/OT BETH SIMS MD May 03, 2022 07:02
[2022-05-03 07:03] LABS: TOTAL PROTEIN 5.5 GM/DL (6.4-8.2)
[2022-05-03 07:05] LABS: BILIRUBIN,TOTAL 0.4 MG/DL (0.1-1.0)
[2022-05-03 07:07] LABS: CREATININE SERUM 1.02 MG/DL (0.60-1.30)
[2022-05-03 07:50] VITALS: BP 158/70
--- NOTE | 2022-05-03 08:49 | Occupational Ther Daily Note ---
OT Current Status-Daily Note Subjective Pt seated in recliner with son present upon OT arrival, agreeable to tx. Mental Status/Objective Patient Orientation: Person, Place, Situation ADL-Treatment Therapy Code Descriptions/Definitions Functional [place] Measure: 0=Not Assessed/NA 4=Minimal Assistance 1=Total Assistance 5=Supervision or Setup 2=Maximal Assistance 6=Modified [place] 3=Moderate Assistance 7=Complete IndependenceSCALE: Activities may be completed with or without assistive devices. 3-Jbqxcgzzce-vabdpor completes the activity by him/herself with no assistance fr om a helper. 5-Set-up or Clean-up Assistance-helper sets up or cleans up; patient completes activity. [place] assists only prior to or following the activity. 4-Supervision or Touching Assistance-helper provides verbal cues and/or touching/steadying and/or contact guard assistance as patient completes activity. Assistance may be provided throughout the activity or intermittently. 3-Partial/Moderate Assistance-helper does LESS THAN HALF the effort. [place] lifts, holds or supports trunk or limbs, but provides less than half the effort. 2-Substantial/Maximal Assistance-helper does MORE THAN HALF the effort. [place] lifts or holds trunk or limbs and provides more than half the effort. 1-Irunnhdtu-admbak does ALL the effort. Patient does none of the effort to complete the activity. Or, the assistance of 2 or more helpers is required for the patient to complete the activity. If activity was not attempted, code reason: 7-Patient Refused. 9-Not Applicable-not attempted and the patient did not perform the activity before the current illness, exacerbation or injury. 10-Not Attempted due to Environmental Limitations-(lack of equipment, weather restraints, etc.). 88-Not Attempted due to Medical Conditions or Safety Concerns. Oral Hygiene (QC): 5 (per pt report) Lower Body Dressing (QC): 3 (Min A to thread feet through underwear, mod-max v/c's for sequencing) On/Off Footwear: 3 (Min A to thread feet into sock aide, mod-max v/c's for sequencing) Other Treatment Pt remained in recliner throughout duration of tx. She was unable to recall hip precautions, so OT reviewed 3/3 precautions, pt verbalized understanding. OT demonstrated use of envelope sealer operator and sock aide in LBD and footwear to maintain precautions. Pt was able to return demonstration with mod-max v/c's for sequencing and instruction of use. Pt said she would benefit from print out instructions for AE, and that she would like for OT to return and review precautions and how to use AE during LBD and footwear. Pt declined any further ADLs at this time. Post tx, pt left in recliner with call light in reach and all needs met. Education OT Patient Education: Correct positioning, Energy conservation, Instructions to caregiver, Modified ADL techniques, Progress toward Goal/Update tx plan, Purpose of tx/functional activities, Reviewed precautions, Rehab process, Safety issues, Use of adapted equipment Teaching Recipient: Patient, Family (son) Teaching Methods: Demonstration, Discussion Response to Teaching: Verbalize Understanding, Return Demonstration, Reinforcement Needed OT Dairy Farm Worker Goals Dairy Farm Worker Goals Time Frame: May 27, 2022 Toileting Hygiene (QC): 6 Shower/Bathe Self (QC): 5 Lower Body Dressing (QC): 6 On/Off Footwear (QC): 6 Additional Goals: 1-Demonstrate ADL Tasks, 2-Verbalize Understanding, 3- ImproveStrength/[place] 1=Demonstrate adherence to instructed precautions during ADL tasks. 2=Patient will verbalize/demonstrate understanding of assistive devices/modifications for ADL. 3=Patient will improve strength/tolerance for activity to enable patient to perform ADL's. OT Education/Plan Problem List/Assessment Assessment: Decreased Activ Tolerance, Decreased Safety Aware, Decreased UE Strength, Impaired I ADL's, Impaired Self-Care Skills Discharge Recommendations Plan/Recommendations: Continue POC Equpiment Recommendations-D/C: Sock Aide Treatment Plan/Plan of Care Patient would benefit from OT for education, treatment and training to promote independence in ADL's, mobility, safety and/or upper extremity function for ADL's. Plan of Care: ADL Retraining, Functional Mobility, UE Funct Exercise/Act Treatment Duration: May 27, 2022 Frequency: 3 times per week (3-5x/wk) Estimated Hrs Per Day: .25 hour per day Rehab Potential: Good Time/GCodes Start Time: 08:05 Stop Time: 08:22 Total Time Billed (hr/min): 17 Billed Treatment Time 1, ADL JACKLYN PRUITT OT May 03, 2022 08:49
--- NOTE | 2022-05-03 09:20 | Physical Therapy Daily Note ---
PT Daily Note-Current Subjective Patient agrees to PT. Reports she has had a pain pill and rates her right hip pain 5/10. Pain Numeric Pain Scale: 5-Moderate Pain Location: Right Location Body Site: Hip Pain Description: Acute Mental Status Patient Orientation: Normal For Age Transfers SCALE: Activities may be completed with or without assistive devices. 1-Ghykwftkrm-pxrdetk completes the activity by him/herself with no assistance from a helper. 5-Set-up or Clean-up Assistance-helper sets up or cleans up; patient completes activity. [place] assists only prior to or following the activity. 4-Supervision or Touching Assistance-helper provides verbal cues and/or touching/steadying and/or contact guard assistance as patient completes activity. Assistance may be provided throughout the activity or intermittently. 3-Partial/Moderate Assistance-helper does LESS THAN HALF the effort. [place] lifts, holds or supports trunk or limbs, but provides less than half the effort. 2-Substantial/Maximal Assistance-helper does MORE THAN HALF the effort. [place] lifts or holds trunk or limbs and provides more than half the effort. 2-Gmvbjbqls-iwhajs does ALL the effort. Patient does none of the effort to complete the activity. Or, the assistance of 2 or more helpers is required for the patient to complete the activity. If activity was not attempted, code reason: 7-Patient Refused. 9-Not Applicable-not attempted and the patient did not perform the activity before the current illness, exacerbation or injury. 10-Not Attempted due to Environmental Limitations-(lack of equipment, weather restraints, etc.). 88-Not Attempted due to Medical Conditions or Safety Concerns. Lying to Sitting/Side of Bed(Q: 4 Sit to Stand (QC): 4 Chair/Lwv-ip-Kqciv Xfer(QC): 4 Toilet Transfer (QC): 4 Weight Bearing Right Lower Extremity: Right Weight Bearing/Tolerated Left Lower Extremity: Left Full Weight Bearing Gait Training Does the Patient Walk?: Yes Distance: 250' Walk 10 feet (QC): 4 Walk 50 ft with 2 Turns(QC): 4 Walk 150 ft (QC): 4 Gait Assistive Device: FWW slow, reciprocal pattern/antalgic Exercises Supine Ex: Ankle pumps, Quad Set, Glut sets, Heel Slides Supine Reps: 15 Seated Therapy Exercises: Long arc quads Seated Reps: 15 Assessment Patient much improved with gross motor skills. Patient toileted self and brushed her teeth with set up. OT notified. Increase activity as tolerated by patient. PT Sample Grader Goals Half-Way Goals PT Half-Way Goals Time Frame: May 14, 2022 Roll Left & Right (QC): 6 Sit to Lying (QC): 6 Lying-Sitting on Side/Bed(QC): 6 Sit to Stand (QC): 6 Chair/Bbo-kb-Pxurc Xfer(QC): 6 Toilet Transfer (QC): 6 Walk 10 feet (QC): 6 Walk 50ft with 2 Turns (QC): 6 Walk 150 ft (QC): 6 1 Step (curb) (QC): 4 4 Steps (QC): 4 PT Plan Treatment/Plan Treatment Plan: Continue Plan of Care Treatment Plan: Bed Mobility, Education, Functional Activity [place], Functional Strength, Gait, Safety, Therapeutic Exercise, Transfers Treatment Duration: May 14, 2022 Frequency: 11 times per week Estimated Hrs Per Day: .5 hour per day Patient and/or Family Agrees t: Yes Time/GCodes Time In: 720 Time Out: 743 Total Billed Treatment Time: 23 Total Billed Treatment 1 visit EX 13 min GT 10 min REY REESE PT May 03, 2022 09:20
[2022-05-03] MEDS: VITAMIN D3 25 MCG (1,000 UNITS) TABLET PO SCH (09:55)
[2022-05-03] MEDS: ENOXAPARIN INJECTION 30 MG/0.3 ML SYR SC SCH (09:55)
[2022-05-03] MEDS: SENNOSIDES 8.6 MG (SENOKOT) TAB PO SCH ×2 (09:55→20:09)
[2022-05-03] MEDS: lisINopril 20 MG (PRINIVIL) TABLET PO SCH ×2 (09:55→20:09)
[2022-05-03] MEDS ORDERED: amLODIPine 5 MG (NORVASC) TAB PO NR (11:15)
[2022-05-03 11:29] VITALS: BP 146/67
--- NOTE | 2022-05-03 12:27 | Progress Note - Cardiology ---
Cardiology SOAP Progress Note Objective: I&O/Vital Signs 05/03/22 05/03/22 05/03/22 05/03/22 01:00 04:59 07:00 07:50 Temp 37.1 36.9 Pulse 70 98 84 74 Resp 20 16 B/P (MAP) 152/64 (93) 158/70 (99) Pulse Ox 93 94 O2 Delivery Room Air Room Air 05/03/22 05/03/22 08:00 11:29 Temp 36.8 Pulse 85 Resp 18 B/P (MAP) 146/67 (93) Pulse Ox 95 O2 Delivery Room Air Room Air 05/03/22 00:00 Intake Total 1410 ml Output Total 495 ml Balance 915 ml Constitutional: AAO x 3, well-developed, other (thin-appearing) Respiratory: No accessory muscle use; other (fair to good, bilateral air entry) Cardiovascular: regular rate-rhythm, S1 and S2, systolic murmur (soft LORENA at card base) Gastrointestional: No tender; soft; No guarding, No rebound; audible bowel sounds Extremities: No clubbing, No cyanosis, No significant edema Neurologic/Psychiatric: other (moves all limbs; we did not attempt any motion at the R hip) Skin: warm/dry; No rash on exposed areas, No ulcerations on exposed areas Results/Procedures: Labs Laboratory Tests 05/03/22 05:27: White Blood Count 9.1, Red Blood Count 2.96L, Hemoglobin 9.0L, Hematocrit 28L, Mean Corpuscular Volume 93, Mean Corpuscular Hemoglobin 30, Mean Corpuscular Hemoglobin Concent 33, Red Cell Distribution Width 13.6, Platelet Count 278, Mean Platelet Volume 9.9, Immature Granulocyte % (Auto) 1, Neutrophils (%) (Auto) 86H, Lymphocytes (%) (Auto) 4L, Monocytes (%) (Auto) 8, Eosinophils (%) (Auto) 1, Basophils (%) (Auto) 0, Neutrophils # (Auto) 7.9H, Lymphocytes # (Auto) 0.4L, Monocytes # (Auto) 0.7, Eosinophils # (Auto) 0.1, Basophils # (Auto) 0.0, Immature Granulocyte # (Auto) 0.1, Sodium Level 136, Potassium Level 4.2, Chloride Level 105, Carbon Dioxide Level 20L, Anion Gap 11, Blood Urea Nitrogen 20H, Creatinine 1.02, Estimat Glomerular Filtration Rate 53, BUN/Cr eatinine Ratio 20, Glucose Level 110H, Calcium Level 8.4L, Corrected Calcium 9.0, Total Bilirubin 0.4, Aspartate Amino Transf (AST/SGOT) 50H, Alanine Aminotransferase (ALT/SGPT) 44, Alkaline Phosphatase 72, Total Protein 5.5L, Albumin 3.3 Microbiology 05/01/22 MRSA Screen - Final, Complete MRSA not isolated Laboratory Tests 05/02/22 05:46 05/03/22 05:27 A/P: Assessment: S/P right hip fracture repair on 05-01-[address] Crowley Frequent ventricular and supraventricular ectopy w/o any VT or SVT Hypertension Frailty and low BMI (16) Renal insufficiency: improved Mild anemia of undetermined etiology Age 87 Plan: * Uncontrolled HTN - increse BB * Add aspirin 81 mg daily if ok with surgical services * Continue DVT prophylaxis * Monitor labs CAMERON LEWIS May 03, 2022 12:27
--- NOTE | 2022-05-03 13:58 | Physical Therapy Daily Note ---
PT Daily Note-Current Subjective Patient agrees to PT. Pain Numeric Pain Scale: 5-Moderate Pain Location: Right Location Body Site: Hip Pain Description: Acute Mental Status Patient Orientation: Normal For Age Transfers SCALE: Activities may be completed with or without assistive devices. 5-Dpfytrvakt-xwxgkuw completes the activity by him/herself with no assistance from a helper. 5-Set-up or Clean-up Assistance-helper sets up or cleans up; patient completes activity. [place] assists only prior to or following the activity. 4-Supervision or Touching Assistance-helper provides verbal cues and/or touching/steadying and/or contact guard assistance as patient completes activity. Assistance may be provided throughout the activity or intermittently. 3-Partial/Moderate Assistance-helper does LESS THAN HALF the effort. [place] lifts, holds or supports trunk or limbs, but provides less than half the effort. 2-Substantial/Maximal Assistance-helper does MORE THAN HALF the effort. [place] lifts or holds trunk or limbs and provides more than half the effort. 0-Sycrisukn-cyatxg does ALL the effort. Patient does none of the effort to complete the activity. Or, the assistance of 2 or more helpers is required for the patient to complete the activity. If activity was not attempted, code reason: 7-Patient Refused. 9-Not Applicable-not attempted and the patient did not perform the activity before the current illness, exacerbation or injury. 10-Not Attempted due to Environmental Limitations-(lack of equipment, weather restraints, etc.). 88-Not Attempted due to Medical Conditions or Safety Concerns. Lying to Sitting/Side of Bed(Q: 4 Sit to Stand (QC): 4 Chair/Emz-pn-Uzlti Xfer(QC): 4 Weight Bearing Right Lower Extremity: Right Weight Bearing/Tolerated Left Lower Extremity: Left Full Weight Bearing Gait Training Distance: 250' Walk 10 feet (QC): 4 Walk 50 ft with 2 Turns(QC): 4 Walk 150 ft (QC): 4 Gait Assistive Device: FWW slow, antalgic, step to pattern Exercises Supine Ex: Ankle pumps, Quad Set, Heel Slides Supine Reps: 15 Assessment Patient progressing with treatment plan and will dismiss with family tomorrow per SW. PT to continue. PT Flexible Babysitter Goals Flexible Babysitter Goals PT Mcc Goals Time Frame: May 14, 2022 Roll Left & Right (QC): 6 Sit to Lying (QC): 6 Lying-Sitting on Side/Bed(QC): 6 Sit to Stand (QC): 6 Chair/Yue-hm-Bxdgv Xfer(QC): 6 Toilet Transfer (QC): 6 Walk 10 feet (QC): 6 Walk 50ft with 2 Turns (QC): 6 Walk 150 ft (QC): 6 1 Step (curb) (QC): 4 4 Steps (QC): 4 PT Plan Treatment/Plan Treatment Plan: Continue Plan of Care Treatment Plan: Bed Mobility, Education, Functional Activity [place], Functional Strength, Gait, Safety, Therapeutic Exercise, Transfers Treatment Duration: May 14, 2022 Frequency: 11 times per week Estimated Hrs Per Day: .5 hour per day Patient and/or Family Agrees t: Yes Time/GCodes Time In: 1320 Time Out: 1343 Total Billed Treatment Time: 23 Total Billed Treatment 1 visit EX 13 min GT 10 min REY REESE PT May 03, 2022 13:58
[2022-05-03 15:34] VITALS: BP 177/75
--- NOTE | 2022-05-03 16:26 | Progress Note - Hospitalist ---
Subjective HPI/CC On Admission Date Seen by Provider: May 03, 2022 Time Seen by Provider: 09:45 Gail Gee is an 87 year old female with PMH HTN who presented after a fall. She lost her balance and fell to the ground on her right side. She was having right sided hip pain. She did not lose consciousness. Upon my exam, she has just returned from surgery and she is very lethargic from medication. Subjective/Events-last exam She is feeling better. She is sitting in her chair. She has been walking with therapy. Her pain is improved. She has been eating and drinking. Objective Exam Vital Signs Vital Signs Date Time Temp Pulse Resp B/P (MAP) Pulse Ox O2 Delivery O2 Flow Rate FiO2 05/03/22 15:34 37.2 87 18 177/75 (109) 95 Room Air 05/02/22 08:08 1.00 05/01/22 00:51 21 Capillary Refill : Less Than 3 Seconds General Appearance: No Apparent Distress, Thin Respiratory: Lungs Clear, No Respiratory Distress Cardiovascular: Regular Rate, Rhythm, No Murmur Gastrointestinal: Normal Bowel Sounds, Soft Extremity: Normal Inspection, No Pedal Edema Neurologic/Psychiatric: Alert, Normal Mood/Affect Skin: Normal Color, Warm/Dry Results/Procedures Lab Laboratory Tests 05/03/22 05:27 Patient resulted labs reviewed. Imaging: Reviewed Imaging Report Assessment/Plan Assessment and Plan Assess & Plan/Chief Complaint Closed right hip fracture Ground level fall Advanced age Low BMI XR with right hip fracture Orthopedic surgery, Dr. Crowley, consulted s/p surgical repair 05/01 Pain regimen Bowel regimen Incentive spirometry PT/OT Planning for discharge home with outpatient therapy tomorrow HTN Lisinopril resumed Started on Metoprolol Add HCTZ DVT prophylaxis: Lovenox QUINTIN, resolved Diagnosis/Problems Diagnosis/Problems (1) Fracture of right hip Qualifiers: Encounter type: initial encounter Fracture type: closed Qualified Codes: S72.001A - Fracture of unspecified part of neck of right femur, initial encounter for closed fracture (2) Fall from ground level Status: Acute (3) Advanced age Status: Chronic (4) Low BMI Status: Chronic (5) HTN (hypertension) Status: Chronic (6) CKD (chronic kidney disease) Status: Chronic RADHA WOOD MD May 03, 2022 16:26
[2022-05-03] MEDS ORDERED: ASPIRIN 81 MG CHEW (CHILDREN'S ASA) PO NR (17:45)
[2022-05-03 19:55] VITALS: BP 173/103
[2022-05-03 23:48] VITALS: BP 155/68
[2022-05-04 04:52] VITALS: BP 156/70
[2022-05-04] MEDS: HYDROcodone/APAP 5 MG/325 MG (LORTAB) TAB PO PRN (05:04)
[2022-05-04 07:28] VITALS: BP 146/65
[2022-05-04] MEDS ORDERED: amLODIPine 5 MG (NORVASC) TAB PO SCH (09:00)
[2022-05-04] MEDS ORDERED: ASPIRIN 81 MG CHEW (CHILDREN'S ASA) PO SCH (09:00)
[2022-05-04] MEDS ORDERED: meTOproloL SUCCINATE 50 MG (TOPROL XL) TAB PO SCH (09:00)
[2022-05-04] MEDS ORDERED: HYDR25TA4 PO (09:20)
[2022-05-04] MEDS ORDERED: METO50TA7 PO (09:20)
[2022-05-04] MEDS: ENOXAPARIN INJECTION 30 MG/0.3 ML SYR SC SCH (09:27)
[2022-05-04] MEDS: MULTIVIT W/MINERALS TAB (THERAGRAN M) PO SCH (09:27)
[2022-05-04] MEDS: lisINopril 20 MG (PRINIVIL) TABLET PO SCH (09:27)
[2022-05-04] MEDS: SENNOSIDES 8.6 MG (SENOKOT) TAB PO SCH (09:27)
[2022-05-04] MEDS: VITAMIN D3 25 MCG (1,000 UNITS) TABLET PO SCH (09:27)
--- NOTE | 2022-05-04 10:34 | Progress Note ---
Standard Progress Note Progress Notes/Assess & Plan Date Seen by a Provider: May 04, 2022 Time Seen by a Provider: 10:33 Progress/Assessment & Plan no complaints denies paresthesias radiographs--HW well positioned without fracture RLE--intact DF and PF of toes and ankle. pulses equal with brisk cap refill sensation intact to light touch throughout s/p R hip bipolar IRU eval PT/OT Final Diagnosis patient doing very well Vital Signs Date Time Temp Pulse Resp B/P (MAP) Pulse Ox O2 Delivery O2 Flow Rate FiO2 05/04/22 08:00 Room Air 05/04/22 07:28 37.3 92 18 146/65 (92) 95 Room Air 05/04/22 07:00 98 05/04/22 04:52 36.9 88 20 156/70 (98) 95 Room Air 05/04/22 01:00 75 05/03/22 23:48 36.9 73 18 155/68 (97) 95 Room Air 05/03/22 19:55 Room Air 05/03/22 19:55 37.4 84 16 173/103 (126) 96 Room Air 05/03/22 19:00 111 05/03/22 15:34 37.2 87 18 177/75 (109) 95 Room Air 05/03/22 13:00 80 05/03/22 11:29 36.8 85 18 146/67 (93) 95 Room Air I & O 05/04/22 07:00 Intake Total 1210 ml Output Total 1650 ml Balance -440 ml Laboratory Tests Test 05/04/22 05:44 Range/Units Hemoglobin 9.0 L 11.5-16.0 g/dL Hematocrit 27 L 35-52 % R hip incision clean and dry. no calf tenderness s/p R hip bipolar will FU in [place] with DR Jaquez have referred to osito out in two weeks BETH SIMS MD May 04, 2022 10:34
[2022-05-04 11:13] VITALS: BP 149/69
--- NOTE | 2022-05-04 23:05 | Discharge Summary ---
Discharge Summary Hospital Course Problems/Dx: (1) Fracture of right hip Qualifiers: Qualified Codes: S72.001A - Fracture of unspecified part of neck of right femur, initial encounter for closed fracture (2) Fall from ground level Status: Acute (3) Advanced age Status: Chronic (4) Low BMI Status: Chronic (5) HTN (hypertension) Status: Chronic (6) CKD (chronic kidney disease) Status: Chronic Hospital Course Date of Admission: Apr 30, 2022 at 22:58 Admission Diagnosis : Closed right hip fracture Family Physician/Provider: Mukesh Horton Physician Date of Discharge: 05/04/22 Discharge Diagnosis: Closed right hip fracture Hospital Course: Gail Gee is an 87 year old female who presented after a fall and was admitted with closed right hip fracture. Orthopedic surgery was consulted and she underwent surgical repair. Her course was complicated by acute kidney injury which resolved with IV fluids. She had a mild acute blood loss anemia due to expected blood loss following surgery. She had issues with hypertension. She was continued on her Lisinopril. She was started on Metoprolol and Hydrochlorothiazide. She was debilitated and was set up with outpatient physical therapy. She will be staying with her son in [place]. They are going to try to get her into a halfway facility or set up with home health. She was discharged home in stable condition. Labs and Pending Lab Test: Laboratory Tests 05/04/22 05:44: Hemoglobin 9.0L, Hematocrit 27L Microbiology 05/01/22 MRSA Screen - Final, Complete MRSA not isolated Home Meds Active Hydrochlorothiazide 25 Mg Tablet 25 Mg PO DAILY 30 Days Metoprolol Succinate 50 Mg Tab.er.24h 50 Mg PO DAILY 30 Days Reported Vitamin E (Vitamin E Mixed) 1,000 Unit Capsule 1,000 Unit PO DAILY Vitamin D3 (Cholecalciferol (Vitamin D3)) 25 Mcg (1000 Unit) Tablet 25 Mcg PO DAILY Vitamin C (Ascorbate Calcium) 500 Mg Tablet 500 Mg PO DAILY Tylenol Extra Strength (Acetaminophen) 500 Mg Tablet 500 Mg PO Q8H PRN Multi-Vitamin Daily (Multivitamin) 1 Each Tablet 1 Each PO DAILY Tylenol Pm Ex-Strength Caplet (Acetaminophen/Diphenhydramine) 500 Mg-25 Mg Tablet 0.5 Each PO HS PRN TAKES 1/2 OF TAB Lisinopril 20 Mg Tablet 20 Mg PO BID Assessment/Pt Instructions See instructions Discharge Planning: >30 minutes discharge planning Discharge Instructions Discharge Diet: Low Sodium Diet Activity as Tolerated: Yes Consultations Ortho Discharge Physical Examination Vital Signs Vital Signs Date Time Temp Pulse Resp B/P (MAP) Pulse Ox O2 Delivery O2 Flow Rate FiO2 05/04/22 11:38 05/04/22 11:13 37.2 80 18 96 Room Air 05/02/22 08:08 1.00 05/01/22 00:51 21 General Appearance: No Apparent Distress, Thin Respiratory: Lungs Clear, No Respiratory Distress Cardiovascular: Regular Rate, Rhythm, No Murmur Gastrointestinal: Normal Bowel Sounds, Soft Extremity: Normal Inspection, No Pedal Edema Skin: Normal Color, Warm/Dry Neurologic/Psychiatric: Alert, Normal Mood/Affect Allergies: Coded Allergies: No Known Drug Allergies (Unverified , 04/30/22) Discharge Summary Date of Admission Apr 30, 2022 at 22:58 Date of Discharge May 04, 2022 at 11:44 Discharge Date: May 04, 2022 Discharge Time: 11:44 Admission Diagnosis Right hip fracture Consults/Procedures Consulations Ortho Discharge Diagnosis Closed right hip fracture Ground level fall Advanced age Low BMI HTN QUINTIN (1) Fracture of right hip Qualifiers: Qualified Codes: S72.001A - Fracture of unspecified part of neck of right femur, initial encounter for closed fracture (2) Fall from ground level Status: Acute (3) Advanced age Status: Chronic (4) Low BMI Status: Chronic (5) HTN (hypertension) Status: Chronic (6) CKD (chronic kidney disease) Status: Chronic RADHA WOOD MD May 04, 2022 23:02
== END 2022-05-04 11:44 | disposition home or self-care (01) | DRG 522 ==
LOC: ER 21:18 → 4TH 22:58
PROVIDERS: ADMIT Internal Medicine; ATTEND Internal Medicine
PROC: 0SRR01A Replacement of Right Hip Joint, Femoral Surface with Metal Synthetic Substitute, Uncemented, Open Approach (ICD-10-PCS; principal; 2022-05-01 09:51)
DX: S72.011A Unspecified intracapsular fracture of right femur, initial encounter for closed fracture (principal); N17.9 Acute kidney failure, unspecified; D62 Acute posthemorrhagic anemia; Z68.1 Body mass index [BMI] 19.9 or less, adult; I12.9 Hypertensive chronic kidney disease with stage 1 through stage 4 chronic kidney disease, or unspecified chronic kidney disease; N18.9 Chronic kidney disease, unspecified; R54 Age-related physical debility; I49.3 Ventricular premature depolarization; Z23 Encounter for immunization; W18.30XA Fall on same level, unspecified, initial encounter; Y92.481 Parking lot as the place of occurrence of the external cause
CPT/HCPCS: 36415; 71045; 73501; 80048; 80053; 85014; 85018; 85025; 85610; 85730; 87081; 90715; 93005; 94664